=== PATIENT | female | born 1995 | race Caucasian/White ===

== ENCOUNTER 2018-03-21 11:47 | Outpatient (RCR) | payer BC ==
[~2018-03-21] VITALS: Ht 182.9 cm; Wt 93.2 kg
[2018-03-21 12:55] VITALS: BP 123/71
[2018-03-28 13:29] VITALS: BP 123/63
[2018-04-11 14:30] VITALS: BP 115/67
== END 2018-04-11 14:19 | disposition home or self-care (01) ==
LOC: AMSURD 11:47
DX: Z23 Encounter for immunization (principal)